=== PATIENT | female | born 1945 | race Caucasian/White ===

== ENCOUNTER 2021-01-06 14:49 | Day surgery (SDC) | payer MEDICARE, OTHER, SELFPAY ==
[2021-01-06 15:19] VITALS: BP 128/72; PULSE 70; RESP 16; TEMP 36.7; O2SAT 96; BMI 29.8
[2021-01-06] MEDS: LACTATED RINGERS 1,000 ML 200 ML IV (15:38)
--- NOTE | 2021-01-06 15:48 | PM.HP.1 ---
History of Present Illness History of Present Illness Date Patient Seen: 01/06/21 Time Patient Seen: 15:48 Chief complaint: SDC Narrative: The patient presents for colorectal sreening. She has had a recent change in bowel function with 3 months of severe constipation and associated weight loss. She has history of diverticular disease was no episodes of complicated diverticulitis requiring surgery drainage of abscess. Most recent colonoscopy was 2011 significant only for diverticular disease.. No personal or family history of colon cancer. Patient History Family & Social History Social History: household members spouse Tobacco & Substance use: Smoking Status Former smoker alcohol intake frequency holiday/special occasion Substance Use Type does not use Meds Home Medications and Allergies Home Medications Medication Instructions Recorded Confirmed Type amlodipine DAILY 01/06/21 History lisinopril 01/06/21 History lorazepam PRN 01/06/21 History ondansetron 01/06/21 History trazodone DAILY 01/06/21 History Allergies Allergy/AdvReac Type Severity Reaction Status Date / Time No Known Drug Allergies Allergy Verified 01/06/21 15:05 Review of Systems Review of Systems ROS: Yes All systems reviewed with the patient and are negative except as otherwise documented Exam Vital Signs (past 8 hours): - 01/06/21 15:19 Temperature 98.1 F Pulse Rate 70 Respiratory Rate 16 Blood Pressure 128/72 Pulse Oximetry 96 Oxygen Delivery Method Room Air Narrative Exam Narrative: Constitutional-She is oriented to person, place and time. No apparent distress Cardiovascular- regular rate, no peripheral edema Pulmonary-unlabored respiratory effort, no audible wheezing Abdominal-soft, non-tender, non-distended Musculoskeletal-no cyanosis or clubbing Neurological-nonfocal, normal strength throughout, normal gait. Skin-warm and dry Assessment & Plan Assessment & Plan narrative: The patient requires colorectal screening and colonoscopy is recommended. Technical details were discussed. Risks, benefits, alternatives explained. Risks including but not limited to myocardial infarction, aspiration, bleeding, pain, missed lesion, incomplete examination, need for further radiographic studies, colonic perforation, and need for major abdominal surgery were discussed. All questions were answered to their satisfaction, and they are in agreement with this plan.
[2021-01-06] MEDS: ONDANSETRON 4 MG/2 ML INJ IV (15:53)
[2021-01-06 16:07] VITALS: BP 104/56; PULSE 74; RESP 16; TEMP 36.9; O2SAT 93
[2021-01-06] MEDS: MIDAZOLAM 5 MG/5 ML VIAL IV (16:07)
[2021-01-06] MEDS: fentaNYL 250 MCG/5 ML INJ IV (16:08)
--- NOTE | 2021-01-06 16:08 | P.OP.ENDO_ITS ---
Operative Date/Time/Diagnoses Date of procedure: 01/06/21 Time of procedure: 16:08 Pre-op diagnosis: constipation Post-op diagnosis: same Procedure & Clinicians Study performed: sigmoidoscopy Same procedure as scheduled: No Indications: constipation Surgeon: Kodak Zavaleta Procedure Notes Procedure in detail: Medications: Conscious sedation using 4mg IV midazolam and 100mcg IV of fentanyl The history and physical was performed/updated and the patient is ASA class is 2. The procedure was discussed in detail with the patient. Potential risks complications including infection, bleeding, missed diagnosis, perforation, need for surgery, and were explained. Their questions were answered and informed consent was obtained. Patient was brought to the procedure room and placed standard monitoring equipment. The patient's vital signs were monitored continuously throughout the entire procedure. Prior to starting time-out was performed. The patient was placed in the left lateral recumbent position. Procedural sedation was adm inistered. Examination began with a thorough inspection of the perianal area there was no evidence of fissures, fistulae, external hemorrhoids or cutaneous malignancy. The colonoscopy scope was then placed into the anal canal and was advanced forward. I reached the sigmoid colon which was notable for extensive diverticulosis but the preparation was inadequate to proceed further despite copious irrigation. The procedure was aborted. the scope was withdrawn. The patient tolerated the procedure well. They will be discharged once criteria are met. The sedation time was 6 minutes. Specimen(s): none sent Complications: none Impression: diverticulosis Post-procedure Plan for aftercare: reschedule
[2021-01-06 16:12] VITALS: BP 93/54; PULSE 72; RESP 14; O2SAT 93
[2021-01-06 16:17] VITALS: BP 97/57; PULSE 86; RESP 14; O2SAT 94
[2021-01-06 16:22] VITALS: BP 107/64; PULSE 69; RESP 12; TEMP 36.4; O2SAT 96
[2021-01-06 16:23] VITALS: BP 114/70; PULSE 73; RESP 14; TEMP 36.4; O2SAT 96
== END 2021-01-06 16:55 | disposition home or self-care (01) ==
PROVIDERS: PCP Internal Medicine; Referring Provider Surgery; Visit Provider Surgery
PROC: 0DJD8ZZ Inspection of Lower Intestinal Tract, Via Natural or Artificial Opening Endoscopic (ICD-10-PCS; CPT 45378; principal; 2021-01-06 16:00)
DX: R19.4 Change in bowel habit (principal); R63.4 Abnormal weight loss; Z53.09 Procedure and treatment not carried out because of other contraindication
CPT/HCPCS: 45378; 99152; J2250; J2405; J3010

== ENCOUNTER 2021-02-24 12:59 | Day surgery (SDC) | payer MEDICARE, OTHER, SELFPAY ==
[2021-02-24 13:21] VITALS: BP 118/79; PULSE 80; RESP 16; TEMP 37.2; O2SAT 95; BMI 28.3
[2021-02-24] MEDS: LACTATED RINGERS 1,000 ML 200 ML IV (13:36)
--- NOTE | 2021-02-24 14:03 | PM.HP.1 ---
History of Present Illness History of Present Illness Date Patient Seen: 02/24/21 Time Patient Seen: 14:03 Chief complaint: SDC Narrative: 76-year-old woman here for a colonoscopy secondary to a change in bowel habits. She had an attempted colonoscopy 2 months ago which was aborted secondary to inadequate preparation. There been no interval changes in her health. Patient History Family & Social History Social History: household members spouse Tobacco & Substance use: Smoking Status Former smoker alcohol intake current alcohol intake frequency holiday/special occasion Substance Use Type does not use Meds Home Medications and Allergies Home Medications Medication Instructions Recorded Confirmed Type amlodipine 2.5 mg PO DIRECTED 01/06/21 02/24/21 History lisinopril 40 mg PO DIRECTED 01/06/21 02/24/21 History lorazepam 0.5 mg PO PRN PRN 01/06/21 02/24/21 History ondansetron 4 mg PO DIRECTED 01/06/21 02/24/21 History trazodone 150 mg PO DIRECTED 01/06/21 02/24/21 History Allergies Allergy/AdvReac Type Severity Reaction Status Date / Time No Known Drug Allergies Allergy Verified 01/06/21 15:05 Exam Vital Signs (past 8 hours): - 02/24/21 13:21 Temperature 99 F Pulse Rate 80 Respiratory Rate 16 Blood Pressure 118/79 Pulse Oximetry 95 Oxygen Delivery Method Room Air Narrative Exam Narrative: Constitutional-She is oriented to person, place and time. No apparent distress Cardiovascular- regular rate, no peripheral edema Pulmonary-unlabored respiratory effort, no audible wheezing Abdominal-soft, non-tender, non-distended Musculoskeletal-no cyanosis or clubbing Neurological-nonfocal, normal strength throughout Skin-warm and dry Assessment & Plan Assessment and plan (1) Change in bowel habits: Status: Acute Plan: 76-year-old woman with a change in bowel habit here for colonoscopy. Technical details were discussed. Risks, benefits, alternatives explained. Risks including but not limited to myocardial infarction, aspiration, bleeding, pain, missed lesion, incomplete examination, need for further radiographic studies, colonic perforation, and need for major abdominal surgery were discussed. All questions were answered to their satisfaction, and they are in agreement with this plan. Time Spent With Patient Critical Care time: I spent a total of [] minutes of critical care time on this patient's care today; this time is exclusive of procedural time.
[2021-02-24] MEDS: MIDAZOLAM 5 MG/5 ML VIAL IV (14:18)
[2021-02-24] MEDS: fentaNYL 250 MCG/5 ML INJ IV (14:18)
--- NOTE | 2021-02-24 14:37 | PM.OP.COLON ---
Operative Date/Time/Diagnoses Date of procedure: 02/24/21 Time of procedure: 14:37 Pre-op diagnosis: Change in bowel Post-op diagnosis: same Procedure & Clinicians Study performed: Colonoscopy Same procedure as scheduled: Yes Indications: Change in bowel habit Surgeon: Kodak Zavaleta Procedure Notes Procedure in detail: Medications: Conscious sedation using 3mg IV midazolam and 100mcg IV of fentanyl The history and physical was performed/updated and the patient is ASA class is 2. The procedure was discussed in detail with the patient. Potential risks complications including infection, bleeding, missed diagnosis, perforation, need for surgery, and were explained. Their questions were answered and informed consent was obtained. Patient was brought to the procedure room and placed standard monitoring equipment. The patient's vital signs were monitored continuously throughout the entire procedure. Prior to starting time-out was performed. The patient was placed in the left lateral recumbent position. Procedural sedation was administered. Examination began with a thorough inspection of the perianal area there was no evidence of fissures, fistulae, external hemorrhoids or cutaneous malignancy. The colonoscopy scope was then placed into the anal canal and was advanced to the cecum, which was identified by the ileocecal valve, the appendiceal orifice and the confluence of the taenia. The scope was then slowly withdrawn examining colon thoroughly in all directions, irrigating it of any residual stool. FINDINGS 1. No masses polyps or inflammation 2. Extensive juarez diverticulosis The patient tolerated the procedure well. They will be discharged once criteria are met. The prep was of good/excellent quality. The withdrawl time was 6 minutes. The sedation time was 16 minutes. Specimen(s): none sent Complications: none Impression: Diverticulosis Post-procedure Recommendations: High fiber diet Plan for aftercare: No further colonoscopy is necessary Disposition: same day surgery
[2021-02-24 14:39] VITALS: BP 119/68; PULSE 69; RESP 14; TEMP 36.6; O2SAT 94
[2021-02-24 14:44] VITALS: BP 114/64; PULSE 70; RESP 12; O2SAT 97
[2021-02-24 14:49] VITALS: BP 120/76; PULSE 68; RESP 12; O2SAT 97
[2021-02-24 14:54] VITALS: BP 129/59; PULSE 65; RESP 13; TEMP 36.6; O2SAT 97
[2021-02-24 15:03] VITALS: BP 116/64; PULSE 68; RESP 12; TEMP 36.4; O2SAT 97
== END 2021-02-24 15:13 | disposition home or self-care (01) ==
PROVIDERS: PCP Internal Medicine; Referring Provider Surgery; Visit Provider Surgery
PROC: 0DJD8ZZ Inspection of Lower Intestinal Tract, Via Natural or Artificial Opening Endoscopic (ICD-10-PCS; CPT 45378; principal; 2021-02-24 14:30)
DX: R19.4 Change in bowel habit (principal); K57.30 Diverticulosis of large intestine without perforation or abscess without bleeding
CPT/HCPCS: 45378; 99152; J2250; J3010

== ENCOUNTER → 2021-11-02 17:42 | Outpatient (CLI) | payer MEDICARE, OTHER, SELFPAY ==
--- NOTE | 2021-11-02 | DI.MRI.S_ITS ---
PROCEDURE: MR LUMBAR SPINE WO CON INDICATIONS: spinal stenosis of lumbar region TECHNIQUE: Noncontrast sagittal T1 spin echo and T2 fast echo, sagittal STIR, axial T1 and T2 fast spin echo through the lumbar spine. Axial and oblique coronal T1 spin echo and STIR through the sacrum. In cases with scoliosis, additional coronal T2 fast spin echo may be performed. COMPARISON: None. FINDINGS: Image quality: Excellent. Alignment and Curvature: Convex right thoracolumbar scoliosis. Degenerative grade 1 anterior spondylolisthesis noted L4-5. Bone Marrow: Marrow is of normal overall signal. No acute vertebral body compression fractures. No sacral fractures. And chronic degenerative endplate changes present at L2-3 Spinal Cord: Conus medullaris terminates at the L1 level. Visualized cord demonstrates normal signal and size. Paraspinous Soft Tissues: No paravertebral masses. T12-L1: Normal appearance. L1-L2: Disc space narrowing with hypertrophic facet joints present. No central stenosis. No foraminal stenosis. L2-L3: Disc space narrowing, disc bulge and hypertrophic facet joints results in mild central stenosis. Moderate left and no right foraminal stenosis L3-L4: Disc space narrowing, vacuum disc phenomena and asymmetric left disc bulge with a superimposed left subarticular disc protrusion/extrusion with superior sub ligamentous migration of a small disc fragment and also extending into the left foramen. No central or right foraminal stenosis. Severe left foraminal stenosis relates to disc fragment. L4-L5: Disc space narrowing and circumferential disc bulge with hypertrophic facet joints results in moderate central stenosis. Moderate right and mild left foraminal stenosis L5-S1: Disc space narrowing and vacuum disc phenomena and hypertrophic facet joints present without central or foraminal stenosis. IMPRESSION: 1. Focal L3-4 left subarticular and lateral protrusion/extrusion with subligamentous superior migration results in effacement of the left lateral recess as well as severe left foraminal stenosis. No central stenosis. 2. Multilevel degenerative disc disease and arthropathy results in varying degrees of central and foraminal stenosis as above 3. Thoracolumbar dextroscoliosis Approved by: Jose Hodge M.D. on 11/03/2021 at 10:44
== END ==
PROVIDERS: PCP Internal Medicine; Referring Provider Orthopaedic Surgery Orthopaedic Surgery of the Spine; Visit Provider Orthopaedic Surgery Orthopaedic Surgery of the Spine
DX: M48.061 Spinal stenosis, lumbar region without neurogenic claudication (principal); M51.36 Other intervertebral disc degeneration, lumbar region
CPT/HCPCS: 72148

== ENCOUNTER → 2022-04-05 07:18 | Outpatient (CLI) | payer MEDICARE, OTHER, SELFPAY ==
--- NOTE | 2022-04-05 | DI.MG.S_ITS ---
BILATERAL DIGITAL SCREENING MAMMOGRAM 3D/2D WITH CAD: 04/05/2022 CLINICAL: Routine screening. Comparison is made to exams dated: 12/14/2020 mammogram and 05/21/2019 mammogram - [facility]. There are scattered areas of fibroglandular density in both breasts (category b / 25%-50% glandular tissue). Current study was also evaluated with a Computer Aided Detection (CAD) system. No significant masses, calcifications, or other findings are seen in either breast. There has been no significant interval change. IMPRESSION: NEGATIVE There is no mammographic evidence of malignancy. A 1 year screening mammogram is recommended. Based on the Tyrer Cuzick model (a risk assessment model) the patient's lifetime risk is 1.8% and her 10 year risk is 0.0%. According to the ACR, ACS, and NCCN guidelines, an annual breast MRI exam along with mammogram is recommended if the patient's lifetime risk is 20% or greater. This exam was interpreted at Station ID: [id number]. NOTE: For mammograms, a report in lay terms will be sent to the patient. Approximately 15% of breast malignancies will not be visualized mammographically. In the management of a palpable breast mass, a negative mammogram must not discourage biopsy of a clinically suspicious lesion. Electronically Signed By: Jonnathan Harden M.D., jr/arvind:04/10/2022 11:10:09 letter sent: Normal Exam ACR BI-RADS Category 1: Negative 3341F
== END ==
PROVIDERS: PCP Internal Medicine; Referring Provider Internal Medicine; Visit Provider Internal Medicine
DX: Z12.31 Encounter for screening mammogram for malignant neoplasm of breast (principal)
CPT/HCPCS: 77063; 77067

== ENCOUNTER → 2023-04-18 07:57 | Outpatient (CLI) | payer MEDICARE, OTHER, SELFPAY ==
--- NOTE | 2023-04-18 | DI.MG.S_ITS ---
BILATERAL DIGITAL SCREENING MAMMOGRAM 3D/2D WITH CAD: 04/18/2023 CLINICAL: Routine screening. Comparison is made to exams dated: 04/05/2022 mammogram - [facility], 12/14/2020 mammogram, and 05/21/2019 mammogram - [facility]. There are scattered areas of fibroglandular density in both breasts (category b / 25%-50% glandular tissue). Current study was also evaluated with a Computer Aided Detection (CAD) system. There is a possible developing irregular equal density asymmetry with an indistinct margin in the right breast at 10 o'clock middle depth. No other significant masses, calcifications, or other findings are seen in either breast. IMPRESSION: INCOMPLETE: NEEDS ADDITIONAL IMAGING EVALUATION The possible developing irregular equal density asymmetry in the right breast is indeterminate. Additional views with possible ultrasound are recommended. Based on the Tyrer Cuzick model (a risk assessment model) the patient's lifetime risk is 1.5% and her 10 year risk is 0.0%. According to the ACR, ACS, and NCCN guidelines, an annual breast MRI exam along with mammogram is recommended if the patient's lifetime risk is 20% or greater. This exam was interpreted at Station ID: [id number]. NOTE: For mammograms, a report in lay terms will be sent to the patient. Approximately 15% of breast malignancies will not be visualized mammographically. In the management of a palpable breast mass, a negative mammogram must not discourage biopsy of a clinically suspicious lesion. Electronically Signed By: Carmenza renteria/arvind:04/18/2023 13:30:33 letter sent: Additional Imaging Needed ACR BI-RADS Category 0: Incomplete 3340F
== END ==
PROVIDERS: PCP Internal Medicine; Referring Provider Internal Medicine; Visit Provider Internal Medicine
DX: Z12.31 Encounter for screening mammogram for malignant neoplasm of breast (principal)
CPT/HCPCS: 77063; 77067

== ENCOUNTER → 2023-04-30 08:51 | Outpatient (CLI) | payer MEDICARE, OTHER, SELFPAY ==
--- NOTE | 2023-04-30 | DI.MG.S_ITS ---
UNILATERAL RIGHT DIGITAL DIAGNOSTIC MAMMOGRAM 3D/2D WITH ADDITIONAL VIEWS: 04/30/2023 CLINICAL: Additional evaluation requested from prior study. Comparison is made to exams dated: 04/18/2023 mammogram, 04/05/2022 mammogram - [facility], and 12/14/2020 mammogram - [facility]. There are scattered areas of fibroglandular density in the right breast (category b / 25%-50% glandular tissue). The possible irregular asymmetry in the right breast at 10 o'clock middle depth is not seen in additional views. No other significant masses or calcifications are seen in the breast. IMPRESSION: BENIGN The possible asymmetry in the right breast is benign seen on the screening mammogram likely respresents superimposed fibroglandular tissue and is benign. There is no mammographic evidence of malignancy. Return to annual mammogram screening schedule is recommended. Based on the Tyrer Cuzick model (a risk assessment model) the patient's lifetime risk is 1.5% and her 10 year risk is 0.0%. According to the ACR, ACS, and NCCN guidelines, an annual breast MRI exam along with mammogram is recommended if the patient's lifetime risk is 20% or greater. This exam was interpreted at Station ID: [id number]. NOTE: For mammograms, a report in lay terms will be sent to the patient. Approximately 15% of breast malignancies will not be visualized mammographically. In the management of a palpable breast mass, a negative mammogram must not discourage biopsy of a clinically suspicious lesion. Electronically Signed By: Grisel Pereira M.D. lk/:04/30/2023 09:18:07 letter sent: Normal Exam ACR BI-RADS Category 2: Benign Finding(s) 3342F
== END ==
PROVIDERS: PCP Internal Medicine; Referring Provider Internal Medicine; Visit Provider Internal Medicine
DX: R92.8 Other abnormal and inconclusive findings on diagnostic imaging of breast (principal)
CPT/HCPCS: 77065; G0279

== ENCOUNTER → 2023-11-02 07:49 | Outpatient (CLI) | payer MEDICARE, OTHER, SELFPAY ==
--- NOTE | 2023-11-02 07:51 | DI.CT.S_ITS ---
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 1 mm axial lung, 5 mm thick coronal and sagittal reformats and 7 mm axial MIP were acquired. For radiation dose reduction, the following was used: automated exposure control, adjustment of mA and/or kV according to patient size. COMPARISON: Outside Facility, RG, CT THORAX WITH CONTRAST, 01/08/2020, 17:07. FINDINGS: Image quality: Diagnostic. Lower Neck: No enlarged lymph nodes. Thyroid: No thyroid nodules which require sonographic follow up, per consensus guidelines. Axillae: No enlarged lymph nodes. Chest Wall: Unremarkable. Bones: In this patient with this given history, scrutiny is given to costochondral junctions. On these images, no significant abnormalities are seen. No significant sternal abnormality can be seen. Lungs and Pleura: Presumed scarring can be seen at the right lung apex. Minimal areas of atelectasis can be seen within the lungs. No pneumothorax or pleural effusions are seen. Heart: Heart size is normal. No pericardial effusion. Thoracic Vessels: The aorta and pulmonary arteries demonstrate normal size. Mediastinum and Stefanie: No enlarged lymph nodes. Esophagus: No wall thickening. There is a moderate hiatal hernia. Upper Abdomen: Colonic diverticulosis is seen, without findings of active diverticulitis. The visualized portions of the upper abdominal structures are otherwise unremarkable for imaging technique. IMPRESSION: No imaging explanation is found for this patient's presenting symptoms. Additional findings: Apparent scarring at the right lung apex Moderate hiatal hernia Colonic diverticulosis partially seen. Dictated by: Truman Rapp M.D. on 11/02/2023 at 15:18 Approved by: Truman Rapp M.D. on 11/02/2023 at 15:21
== END ==
LOC: CT 07:50
PROVIDERS: PCP Internal Medicine; Referring Provider Internal Medicine; Visit Provider Internal Medicine
DX: M94.0 Chondrocostal junction syndrome [Tietze] (principal); R07.89 Other chest pain; K44.9 Diaphragmatic hernia without obstruction or gangrene; K57.90 Diverticulosis of intestine, part unspecified, without perforation or abscess without bleeding
CPT/HCPCS: 71260; Q9967

== ENCOUNTER → 2024-05-02 16:27 | Outpatient (CLI) | payer MEDICARE, OTHER, SELFPAY ==
--- NOTE | 2024-05-02 16:29 | DI.MG.S_ITS ---
BILATERAL DIGITAL SCREENING MAMMOGRAM 3D/2D WITH CAD: 05/02/2024 CLINICAL: Routine screening. Comparison is made to exams dated: 04/18/2023 mammogram, 04/05/2022 mammogram - [facility], and 12/14/2020 mammogram - [facility]. There are scattered areas of fibroglandular density (category b / 25%-50% glandular tissue). Current study was also evaluated with a Computer Aided Detection (CAD) system. No significant masses, calcifications, or other findings are seen in either breast. There has been no significant interval change. IMPRESSION: NEGATIVE There is no mammographic evidence of malignancy. A 1 year screening mammogram is recommended. Based on the Tyrer Cuzick model (a risk assessment model) the patient's lifetime risk is 1.3% and her 10 year risk is 0.0%. According to the ACR, ACS, and NCCN guidelines, an annual breast MRI exam along with mammogram is recommended if the patient's lifetime risk is 20% or greater. This exam was interpreted at Station ID: [id number]. NOTE: For mammograms, a report in lay terms will be sent to the patient. Approximately 15% of breast malignancies will not be visualized mammographically. In the management of a palpable breast mass, a negative mammogram must not discourage biopsy of a clinically suspicious lesion. Electronically Signed By: Guillermo reyes/arvind:05/03/2024 10:02:03 letter sent: Normal Exam ACR BI-RADS Category 1: Negative
== END ==
PROVIDERS: PCP Nurse Practitioner Adult Health; Referring Provider Nurse Practitioner Adult Health; Visit Provider Nurse Practitioner Adult Health
DX: Z12.31 Encounter for screening mammogram for malignant neoplasm of breast (principal)
CPT/HCPCS: 77063; 77067